=== PATIENT | female | born 1995 | race African-American/Black ===

== ENCOUNTER 2020-11-19 17:13 | Emergency (ER) | payer OTHER, SELFPAY ==
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
[2020-11-19 17:19] VITALS: BP 126/85; PULSE 69; RESP 16; TEMP 36.6; O2SAT 100
[2020-11-19 18:07] VITALS: BP 126/85; PULSE 69; RESP 20; TEMP 36.6; O2SAT 100
[2020-11-19] MEDS: diazePAM (*CRX) 5 MG TABLET PO (18:27)
[2020-11-19] MEDS: HYDROcodone/acetaminophen (*CRX) 5-325 MG TABLET 1 TAB PO (18:27)
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
== END 2020-11-19 19:52 | disposition home or self-care (01) ==
PROVIDERS: Emergency Provider Emergency Medicine
DX: S16.1XXA Strain of muscle, fascia and tendon at neck level, initial encounter (principal); M79.602 Pain in left arm; V49.40XA Driver injured in collision with unspecified motor vehicles in traffic accident, initial encounter
CPT/HCPCS: 71045; 72125; 73080; 73130; 99284; A9270

== ENCOUNTER 2020-11-20 16:44 | Emergency (ER) | payer OTHER, SELFPAY ==
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
[2020-11-20 16:58] VITALS: BP 126/68; PULSE 99; RESP 18; TEMP 36.2; O2SAT 100
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
== END 2020-11-20 19:23 | disposition home or self-care (01) ==
PROVIDERS: Emergency Provider Emergency Medicine
DX: S80.02XA Contusion of left knee, initial encounter (principal); V49.9XXA Car occupant (driver) (passenger) injured in unspecified traffic accident, initial encounter
CPT/HCPCS: 73564; 99282; 99283

== ENCOUNTER 2020-11-30 16:48 | Emergency (ER) | payer OTHER, SELFPAY ==
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
[2020-11-30 17:04] VITALS: BP 123/70; PULSE 72; RESP 14; TEMP 36.4; O2SAT 98
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
== END 2020-11-30 20:10 | disposition home or self-care (01) ==
PROVIDERS: Emergency Provider Emergency Medicine; PCP Emergency Medicine
DX: S16.1XXD Strain of muscle, fascia and tendon at neck level, subsequent encounter (principal); V89.2XXD Person injured in unspecified motor-vehicle accident, traffic, subsequent encounter
CPT/HCPCS: 73030; 99283